=== PATIENT | male | born 1940 | race Caucasian/White ===

== ENCOUNTER 2016-05-17 07:32 | Day surgery (SDC) | payer MEDICARE ==
[~2016-05-17] VITALS: Ht 175.3 cm; Wt 82.4 kg
[2016-05-17] VITALS (10 sets, daily range): BP systolic 104–138; BP diastolic 59–79; PULSE 70–81; RESP 8–18; O2SAT 94–98
[~2016-05-17 07:32] MED LIST: ALBU8.5H2 INHALATION; ARFO15VI2 IH; ASCO100T11 PO; ASPI-973 PO; ATOR20TA PO; AZEL137S11 NS; AZEL23SP NS; CHOL100045 PO; CeFAZolin Inj 2 GM in IV Premix 1 EACH IV ONE; FLUT12AE10 IH; FLUT9.9S NS; GLUC100016 PO; HYDR-3825 PO; LOSA25TA21 PO; MULT-1018 PO; OMEP20CA11 PO; TAMS0.4C98 PO
[2016-05-17] MEDS ORDERED: EPHEDrine/NS 5 mg/mL 5 mL Syringe ONE (07:33)
[2016-05-17] MEDS ORDERED: Propofol 10,000 mCg/mL 20 mL Inj ONE (07:33)
[2016-05-17] MEDS ORDERED: Lidocaine PF 1% 30 mL Inj ONE (07:33)
[2016-05-17] MEDS ORDERED: Ondansetron 2 mg/mL 2 mL Inj ONE (07:33)
[2016-05-17] MEDS ORDERED: Dexamethasone 4 mg/mL Inj ONE (07:33)
[2016-05-17] MEDS ORDERED: fentaNYL-PF 50 mCg/mL 2 mL Inj ONE (07:33)
[2016-05-17] MEDS: Lactated Ringer's 1,000 ML IV SCH ×2 (07:40→09:12)
[2016-05-17] MEDS ORDERED: Lactated Ringer's 500 ML IV PRN (09:03)
[2016-05-17] MEDS ORDERED: Lactated Ringer's 1,000 ML IV SCH (09:03)
--- NOTE | 2016-05-17 09:03 | PCM.HPANE ---
Patient Data Date of Service: May 17, 2016 Surgeon Admitting Provider: Attending Provider:Kael Estes MD Primary Care Physician:Prachi Schmitz MD Other Provider:Tucker Fox Anesthesia Reason for Visit Umbilical Hernia Ht/WT & BMI Height (Feet): 5 Height (Inches): 9.00 Weight (Kilograms): 82.4 Body Mass Index 26.00 Allergies Uncoded Allergies: NKDA (Allergy, Unknown, 05/17/16) Past Anesthesia History Anesthesia History: Denies:: Abnormal Airway, Anesthesia Reactions, Difficult Intubation, Malignant Hyperthermia Diabetes History Hx Diabetes?: No MRSA MRSA: No Medications Blood Thinner: Aspirin Hypertension Medication: Yes (LOSARTAN) Home Meds Incl Beta Alice: No Reported Medications Albuterol HFA (Proair HFA)8.5 Gm Hfa.aer.ad2 Puffs INHALATION Q4H PRN PRN #1 INHALER 05/16/16 Ascorbic Acid (Vitamin C)100 Mg Stmwmn233 Mg PO DAILY 05/16/16 Cholecalciferol (Vitamin D3) (Vitamin D)1,000 Unit Capsule1,000 Unit PO DAILY # 1 BOTTLE Ref 0 05/16/16 Glucosamine Sulfate 2Kcl (Glucosamine)1,000 Mg Unxzww522 Mg PO DAILY 05/16/16 Losartan Potassium 25 Mg Fwggwk89 Mg PO DAILY 05/16/16 Tamsulosin (Flomax)0.4 Mg Capsule0.4 Mg PO DAILY Ref 0 05/16/16 Omeprazole 20 Mg Capsule.dr20 Mg PO BID Ref 0 05/16/16 Fluticasone Propionate (Flonase Allergy Relief)50 Mcg/Actuation Hamlet.susp9.9 Ml NS BID PRN PRN 05/16/16 Multivitamin (Multi Vitamin Daily)1 Each Tablet1 Each PO DAILY 30 Days Ref 0 05/16/16 Atorvastatin (Lipitor)20 Mg Vqrzkb54 Mg PO DAILY Ref 0 05/16/16 Aspirin 81 Mg Yxadnf56 Mg PO DAILY Ref 0 05/16/16 Discontinued Reported Medications Hydrocodone-Acetaminophen 7.5-325 mg 1 Each Tablet1 Tablet PO Q6H PRN For Pain Ref 0 05/16/16 Fluticasone Propionate (Flovent HFA 220 mcg)12 Gm Aer.w.adap2 Puffs IH BID #12 GM Ref 0 05/16/16 Azelastine/Fluticasone (Dymista Nasal Hamlet)23 Gm Hamlet.pump23 Gm NS DIRECTED PRN For Congestion 05/16/16 Azelastine HCl 137 Mcg/0.137 Ml Hamlet.egjv399 Mcg NS DIRECTED PRN For Congestion 05/16/16 Arformoterol Tartrate (Brovana)15 Mcg/2 Ml Vial.neb15 Mcg IH PRN 05/16/16 History History of ENT Problems?: No HEENT History: Denies:: Abnormal Airway Difficult Intubation Hearing Problem Hx of Heart Problems?: Yes Cardiovascular History: Positive for:: Hypertension (HYPERLIPIDEMIA) Denies:: Heart Murmur Valvular Heart Disease Hx of Respiratory Problem?: Yes Respiratory History: Positive for:: Asthma (PULM NOTE/PFT 05/2016 SHOW WELL- CONTROLLED ASTHMA) Use of Inhalers / NEBS Denies:: Chest Surgery (HX GRANULOMATOUS LUNG DISEASE) Pneumonia (HX BRONCHIECTIASIS) Use of C-PAP Machine Hx Neurologic Problems?: No Neurological History: Denies:: CVA Dementia Hx of GI Problems?: Yes Gastrointestinal History: Positive for:: Gastroesphageal Reflux (HX TOLENTINO'S ESOPHAGUS) Denies:: Diverticulitis (DIVERTICULOSIS) Rectal Bleeding (HX HEMORRHOIDS) Other GI Pertinent History: S/P APPY UMBILICAL HERNIA RPR=CURRENT PROBLEM Hx of Problems?: No Male Hx: Denies:: Prostate Problems Scrotal Mass Testicular Surgery Skin History: Positive for:: History Skin Disorders? (S/P EXC MELANOMA SCALP/ NECK,EXC BASAL CELL CA TRUNK) Denies:: Pressure Ulcers Hx Musculoskeletal Problems?: Yes Musculoskeletal History: Positive for:: Osteoarthritis (C/OF RT HIP PAIN) Denies:: Joint Replacement Hx of Psycho/Social Problems?: No Psycho Social History: Denies:: Anxiety Hx Depression Hx Surgeries?: Yes (EXC SKIN CA X2,APPY) Hx Any Other Health Problems?: Yes Other History: Positive for:: Cancer (SKIN MELANOMA,BASAL CELL CA ) Denies:: Endocrine Disease Hospitalization Thyroid Disease Hx Diabetes: No Hx Alcohol Use: YesHave You Smoked inLast 12 mo: No Stop/Bang S-Snoring: Do You Snore Loudly: No T-Tired: feel tired, fatigued: No O-Obsered: Observed not breath: No P-Blood Pressure: treated: Yes B- Body Mass Index > 35 kg/m2: No A- Age over 50: Yes N- Neck Large Circumference: No G- Gender Male: Yes KIKE Total Score: 3 KIKE Risk Assessment: High Risk, =/>3 Yes KIKE Category 4 OutPt Procedure: Yes Risk Assessment Category Category 1A: Patient has history of documented sleep apnea, and HAS NOT received any narcotic, sedative or anesthesia administration during this stay. Category 1B: Patient has history of documented sleep apnea, and HAS received any narcotic , sedative or anesthesia administration during this stay Category 2: Patient has SUSPECTED Obstructive Sleep Apnea, and HAS received any narcotic , sedative or anesthesia administration during this stay. Category 3: Patient has SUSPECTED Obstructive Sleep Apnea and HAS NOT received narcotic, sedative or anesthesia administration during this stay. Category 4: Outpatient in Procedural Areas with known sleep apnea or who screen positive for High Risk via the STOP/BANG questionnaire. Exam Exam Vital Signs Vital Signs Date Time Temp Pulse Resp B/P Pulse Ox O2 Delivery O2 Flow Rate FiO2 05/17/16 08:06 36.0 76 18 138/79 98 Room Air General Appearance: Alert, Oriented X3, Cooperative, No Acute Distress HEENT/AIRWAY: MP 2 Lungs: Normal Air Movement Heart: Exam Unremarkable Meds/Labs/Diagnostics Admission Meds Current Medications Lactated Ringer's (Lr) 1,000 ml @ 120 mls/hr Q8H20M IV Last administered on t 07:40; Start 05/17/16 at 05:00; Stop 05/17/16 at 13:19 Plan Impression Patient chart reviewed, patient interviewed and anesthestic plan with risks, benefits, and alternatives discussed, and informed consent obtained. NPO Status: 10PM ASA Physical Status: ASA2 Mod Systemic Disease Anesthetic Plan: GA Bene/Risks/Altern/Consents: Yes HP Complete Prior to Induction: Yes Luis Noble MD May 17, 2016 08:49
[2016-05-17] MEDS ORDERED: Ondansetron 2 mg/mL 2 mL Inj IVPUSH PRN (09:05)
[2016-05-17] MEDS ORDERED: EPHEDrine Sulfate 50 mg/mL Inj IVPUSH PRN (09:05)
[2016-05-17] MEDS ORDERED: Atropine 0.4 mg/mL Inj IVPUSH PRN (09:05)
[2016-05-17] MEDS ORDERED: Labetalol 5 mg/mL 4 mL Inj IV PRN (09:05)
[2016-05-17] MEDS ORDERED: Albuterol-Ipratropium 3 mL Inhalation Solution NEB PRN (09:05)
[2016-05-17] MEDS ORDERED: MetoCLOpramide 5 mg/mL 2 mL Inj IVPUSH PRN (09:05)
[2016-05-17] MEDS ORDERED: HYDROmorphone 1 mg/mL Inj IVPUSH PRN (09:05)
[2016-05-17] MEDS ORDERED: hydrALAZINE 20 mg/mL Inj IVPUSH PRN (09:05)
[2016-05-17] MEDS ORDERED: fentaNYL-PF 50 mCg/mL 2 mL Inj IVPUSH PRN (09:05)
[2016-05-17] MEDS ORDERED: Dexamethasone 4 mg/mL Inj IVPUSH PRN (09:05)
[2016-05-17] MEDS ORDERED: Phenylephrine 10,000 mCg/mL Inj IVPUSH PRN (09:05)
[2016-05-17] MEDS ORDERED: Bupivacaine 0.5%/EPI 50 mL Inj INFILTRATE ONE (09:36)
--- NOTE | 2016-05-17 10:09 | PCM.DISURG ---
Surgical Discharge Instruction Date of Service May 17, 2016 Dates of Hospitalization Date of Hospital Admission Providers Admitting Physician: Primary Care Physician: Prachi Schmitz MD Attending Physician: Kael Estes MD Discharge Diagnosis Discharge Diagnosis Umbilical hernia Diet Discharge Diet: No restrictions Activity Discharge Activity-General: No lifting >10 pounds for 4-6 weeks Dressing and Incisional Care Dressing Care: Allow Steri Stripes to fall off, Remove outer dressing after 24 hrs Hygiene: May shower after (24 hours) Follow Up Plan Follow Up Plan In the general surgery [place] postoperative clinic in 10-14 days Call your provider for: Fever (over 101.5), Vomiting, Discharge @ incision, pus discharge Kael Estes MD May 17, 2016 10:09
[2016-05-17] MEDS ORDERED: Ketorolac 15 mg/mL Inj IVPUSH PRN (10:10)
[2016-05-17] MEDS ORDERED: HYDROcodone-APAP 5-325 mg Tablet PO PRN (10:10)
--- NOTE | 2016-05-17 10:12 | PCM.SURGOP ---
Surgical Operative Report Date of Service: May 17, 2016 Pre Operative Diagnosis Umbilical hernia Post Operative Diagnosis Same Procedure: Umbilical hernia repair with mesh Surgeon and Building Services Supervisor: Surgeon: Kael Estes MD Assistants: Denisse Gallagher PA-C Indication for Procedure 76-year-old man who presented with a 6 month history of an umbilical hernia causing mild discomfort. After discussion of risks and benefits, he agreed to proceed with umbilical hernia repair with mesh. Findings: The fascial defect measured 1 cm, containing preperitoneal fat. A repair was performed using the Bard Ventralex mesh, size small. Procedure Details After smooth induction of general anesthesia with LMA, the patient was placed in the supine position with both arms out, and was prepped and draped in wide sterile fashion. A procedural pause was performed according to the SCOAP checklist, and all were found to be in agreement. A curvilinear infraumbilical incision was made. Dissection was carried down with electrocautery through the superficial subcutaneous tissue. The umbilical stalk was encircled with a hemostat. The umbilical stalk was disconnected using cautery. The hernia contents were from the umbilical stalk. The hernia sac was opened. The hernia contained incarcerated preperitoneal fat. This was reduced through the fascial defect. The fascia was skeletonized. The fascial defect measured 1.0 cm in diameter. By palpation, there were no other hernia defects, and no significant intra-abdominal adhesions. A repair was performed using the Bard Ventralex mesh, size small. This was secured as an underlay using 0 Nurolon transfacial sutures circumferentially. The tails of the mesh were cut. The mesh was in good position. The fascia was closed over the mesh transversely using interrupted 0 Nurolon sutures. The umbilical stalk was resuspended to the fascia using an interrupted 3-0 Vicryl suture. The skin incision was closed with interrupted deep dermal 3-0 Vicryl sutures, and a running 4-0 Monocryl subcuticular stitch. Steri-Strips and sterile dressings were applied. At the end of the case all needle and sponge counts were correct 2. The patient was awakened from anesthesia without difficulty, and taken to the recovery room in satisfactory condition, having tolerated the procedure well. Complications There were no periprocedural complications identified. Surgical Specimen Removed: No Specimen sent to Pathology: Not applicable Anesthetic Plan: GA Grafts, Implants: Implants-See Implant Record Output, Estimated Blood Loss: 10 Blood Administration during osborne: No Drains: None Catheters: None copies to: Prachi Schmitz MD, Joshua D MD May 17, 2016 10:11
--- NOTE | 2016-05-17 10:15 | PCM.ANEP1 ---
Post Anesthesia Phase 1 PACU Phase 1 Assessment Date of Service: May 17, 2016 Vital Signs Vital Signs Date Time Temp Pulse Resp B/P Pulse Ox O2 Delivery O2 Flow Rate FiO2 05/17/16 10:10 70 10 105/63 97 Nasal Cannula 2 05/17/16 10:07 36.9 70 8 104/63 98 Nasal Cannula 2 05/17/16 08:06 36.0 76 18 138/79 98 Room Air Anesthetic Administered: GA Level of Alertness: Drowsy, not talking Pain: No Nausea or Vomiting: No Oxygen Delivery: Nasal Cannula Lungs: Normal Air Movement Luis Noble MD May 17, 2016 10:15
--- NOTE | 2016-05-17 10:27 | PCM.ANEP2 ---
Post Anesthesia Evaluation ASA/CMS Post Anesthesia Date of Service: May 17, 2016 VS in Patient's Normal Range?: Yes Resp Stable; Airway Patent?: Yes CV Function & Hydration Stable: Yes Mental Status Recovered?: Yes Pain control Satisfactory?: Yes N/V Control Satisfactory?: Yes Luis Noble MD May 17, 2016 10:27
== END 2016-05-17 23:59 | disposition home or self-care (01) ==
LOC: SAS 07:32
PROVIDERS: ATTEND Student in an Organized Health Care Education/Training Program
DX: K42.9 Umbilical hernia without obstruction or gangrene (principal); I10 Essential (primary) hypertension; J45.909 Unspecified asthma, uncomplicated; K21.9 Gastro-esophageal reflux disease without esophagitis; Z79.82 Long term (current) use of aspirin; Z79.899 Other long term (current) drug therapy
CPT/HCPCS: 49585; C1781; J0690; J1100; J2405; J3010; J7120